=== PATIENT | female | born 1990 | race Caucasian/White ===

== ENCOUNTER 2017-02-21 13:30 | Emergency (ER) | payer OTHER, MEDICAID ==
[~2017-02-21 13:30] MED LIST: NALOXONE HCL 0.4 MG/ML INJ IM ONE
[2017-02-21] MEDS ORDERED: NALOXONE HCL 0.4 MG/ML INJ IVP ONE ×2 (13:34→13:40)
[2017-02-21 13:38] VITALS: TEMP 100.6
--- NOTE | 2017-02-21 13:49 | EDPHY ---
H & P Time Seen by Provider: 02/21/17 13:39 HPI/ROS: CHIEF COMPLAINT: Heroin overdose Limitations: Unresponsive HISTORY OF PRESENT ILLNESS: 27-year-old female presents after a heroin dose with unresponsiveness. According to her brother, she probably injected heroin 1 hour prior to arrival. He found her unresponsive, pale and not breathing well. He threw water over her, but she did not arouse, so he drove her to the ED. REVIEW OF SYSTEMS: Unable to obtain Past Medical/Surgical History: Unknown Social History: IV drug abuse Physical Exam: General Appearance: Unresponsive, limp and blue Eyes: pinpoint pupils ENT, Mouth: Mucous membranes moist Neck: Normal inspection Respiratory: shallow and infrequent respirations Cardiovascular: Regular tachycardia Gastrointestinal: Abdomen is soft Neurological: unresponsive to painful stimuli, limp Skin: pale Extremities: normal inspection Psychiatric: unable to determine Constitutional: Initial Vital Signs Temperature (C) 38.1 C 02/21/17 13:30 Heart Rate 136 H 02/21/17 13:30 Respiratory Rate 2 L 02/21/17 13:30 Blood Pressure 143/86 H 02/21/17 13:30 O2 Sat (%) 78 L 02/21/17 13:30 O2 Delivery Mode Non-Rebreather Mask O2 (L/minute) 15 Allergies/Adverse Reactions: Penicillins Allergy (Verified 02/21/17 13:38) Home Medications: Medication Instructions Recorded Albuterol 02/21/17 clonIDINE 02/21/17 Medical Decision Making ED Course/Re-evaluation: This patient quickly stopped breathing as we moved her over to a gurney. Bag- valve mask ventilations initiated on arrival. Narcan 0.4 mg IM given. Respirations became adequate and she was able to open her eyes to voice. Non- rebreather 100% oxygen applied. IV access obtained in bilateral upper extremities. Narcan 0.4 mg IV x 2 given. She remained awake and with normal respirations. She stated that she used heroin, but no other drugs, approximately 1 hour prior to arrival. EMS was called for transport, as we only had 1 more dose of Narcan available. Dr. Camejo at [facility] accepted transfer of this pt. EMTALA form completed. This patient utilized 20 minutes of critical care time exclusive of unbundled procedures. Differential Diagnosis: Altered mental status including but not limited to hypoglycemia, infectious process, electrolyte abnormality, head injury and intoxicants. - Data Points Medications Given: Discontinued Medications Sodium Chloride (Ns) 1,000 mls @ 0 mls/hr IV ONCE ONE; Wide Open PRN Reason: Protocol Stop: 02/21/17 13:52 Last Admin: 02/21/17 13:34 Dose: 1,000 mls Naloxone HCl (Narcan) 0.4 mg IM EDNOW ONE Stop: 02/21/17 13:31 Last Admin: 02/21/17 13:30 Dose: 0.4 mg Naloxone HCl (Narcan) 0.4 mg IVP EDNOW ONE Stop: 02/21/17 13:35 Last Admin: 02/21/17 13:34 Dose: 0.4 mg Naloxone HCl (Narcan) 0.4 mg IVP EDNOW ONE Stop: 02/21/17 13:41 Last Admin: 02/21/17 13:40 Dose: 0.4 mg Departure - Departure Disposition: [facility] Clinical Impression: Respiratory arrest Heroin overdose Qualifiers: Encounter type: initial encounter Injury intent: accidental or unintentional Qualified Code(s): T40.1X1A - Poisoning by heroin, accidental (unintentional), initial encounter Condition: Serious Referrals: UNKNOWN,UNKNOWN [Primary Care Provider] - As per Instructions
[2017-02-21] MEDS ORDERED: NS 1,000 ML IV ONE (13:51)
[2017-02-21 14:05] VITALS: BP 134/80; PULSE 126; RESP 36; O2SAT 97
== END 2017-02-21 13:53 | disposition short-term general hospital (02) ==
LOC: CED 13:30
DX: R09.2 Respiratory arrest (principal); T40.1X1A Poisoning by heroin, accidental (unintentional), initial encounter
CPT/HCPCS: 96374